=== PATIENT | male | born 1965 | race Caucasian/White ===

== ENCOUNTER → 2016-09-11 | Outpatient (CLI) | payer OTHER ==
[~2016-09-11] MED LIST: ADVICOR PO; ALLI60 MG; ASPIRIN 32325 MG/TAB PO; CALAN SR240 MG PO; CEPHALEXIN500 M1 PO; CETIRIZINE; CETIRIZINE PO; CHOLESTEROL MED; CHROMIUM PICO200 MCG PO; CO Q-1010 M1 PO; FLONASE NASAL S16 GM NS; GARLIC PO; GLUCOPHAGE XR500 M1 PO; GLUCOSAMINE PO; K-DUR 10 MEQ T10 MEQ PO; LASIX 20MG TABL20 MG PO; LIPITOR20 MG PO; LISINOPRIL20 MG PO; LOFIBRA134 MG PO; MVI; MVI PO; NIASPAN1000 MG PO; NORCO 325 MG-51 TAB PO; PAXIL 20MG20 MG PO; PAXIL CR25 MG PO; PAXIL PO; PEPCID 20MG TAB20 MG PO; PREDNISONE20 MG PO; TAMIFLU 75MG75 MG PO; VERAPAMIL; VERELAN240 MG PO; VITAMIN C500 MG PO; ZESTRIL; ZOCOR40 MG PO; ZYVOX 600MG600 MG PO
== END ==
LOC: COL.VAS 12:30
DX: I82.409 Acute embolism and thrombosis of unspecified deep veins of unspecified lower extremity (principal); M79.605 Pain in left leg

== ENCOUNTER 2016-09-12 10:31 | Inpatient (IN) | payer OTHER ==
[~2016-09-12] VITALS: Ht 190.5 cm; Wt 162.1 kg
[~2016-09-12 10:31] MED LIST changes: -ALLI60 MG; -ASPIRIN 32325 MG/TAB PO; -CEPHALEXIN500 M1 PO; -CO Q-1010 M1 PO; -GLUCOPHAGE XR500 M1 PO; -K-DUR 10 MEQ T10 MEQ PO; -LASIX 20MG TABL20 MG PO; -LIPITOR20 MG PO; -LOFIBRA134 MG PO; -NIASPAN1000 MG PO; -NORCO 325 MG-51 TAB PO; -PAXIL 20MG20 MG PO; -PREDNISONE20 MG PO; -TAMIFLU 75MG75 MG PO; -VERELAN240 MG PO; -ZYVOX 600MG600 MG PO
[2016-09-12 11:47] LABS: HEMATOCRIT 39.6 % (42.0-52.0); HEMOGLOBIN 14.1 g/dl (13.5-18.0); MEAN CELL VOLUME 90 fl (80.0-100.0); MEAN CORPUSCULAR HEMOGLOBIN 32 pg (27.0-31.0); MEAN CORPUSCULAR HGB CONC 36 g/dl (33.0-37.0); MEAN PLATELET VOLUME 9.4 fl (7.4-10.4); PLATELET COUNT 199 K/mm3 (130-400); RED BLOOD COUNT 4.42 M/mm3 (4.20-5.60); REDCELL DISTRIBUTION WIDTH-CV 12.9 % (11.5-14.5); WHITE BLOOD COUNT 14.4 K/mm3 (4.8-10.8)
[2016-09-12 12:02] LABS: ADD PATHOLOGY DIFF REVIEW NO
[2016-09-12 12:05] LABS: PH 6 (5-8); SQUAMOUS EPITHELIAL 0-2 /hpf; URINE APPEARANCE Clear; URINE BACTERIA None Seen /hpf; URINE BILIRUBIN Negative (NEGATIVE); URINE BLOOD Negative (NEGATIVE); URINE COLOR Yellow; URINE GLUCOSE Negative (NEGATIVE); URINE KETONE Negative (NEGATIVE); URINE RBC 0-2 /hpf; URINE UROBILINOGEN Negative (NEGATIVE); URINE WBC 0-2 /hpf
[2016-09-12 12:05] LABS: BAND 38 % (0-10); NEUTROPHILS 57 % (42.0-75.2); PLATELET ESTIMATE NORMAL (NORMAL); TOTAL CELLS COUNTED 100
[2016-09-12 12:06] LABS: ADJUSTED CALCIUM 9.1 mg/dL (8.4-10.2); BILIRUBIN,TOTAL 2.1 mg/dL (0.0-1.0); CALCIUM 9.1 mg/dL (8.4-10.2); CREATININE, serum 0.73 mg/dL (0.66-1.25); INFLUENZA B NEGATIVE; POTASSIUM 3.7 mmol/L (3.4-5.0); TOTAL PROTEIN 7.7 gm/dL (6.4-8.2)
[2016-09-12] MEDS ORDERED: ASPIRIN 32325 MG/TAB PO (12:21)
[2016-09-12] MEDS ORDERED: ALLI60 MG (12:25)
[2016-09-12] MEDS ORDERED: CO Q-1010 M1 PO (12:26)
[2016-09-12] MEDS ORDERED: VERELAN240 MG PO (12:27)
[2016-09-12] MEDS ORDERED: GLUCOPHAGE XR500 M1 PO (12:28)
[2016-09-12] MEDS ORDERED: LOFIBRA134 MG PO (12:29)
[2016-09-12] MEDS ORDERED: NIASPAN1000 MG PO (12:30)
[2016-09-12] MEDS ORDERED: LIPITOR20 MG PO (12:31)
[2016-09-12] MEDS ORDERED: PAXIL 20MG20 MG PO (12:36)
[2016-09-12] MEDS ORDERED: TAMIFLU 75MG75 MG PO (12:58)
[2016-09-12] MEDS ORDERED: CEPHALEXIN500 M1 PO (12:58)
[2016-09-12 13:10] LABS: C-REACTIVE PROTEIN 38.8 mg/dL (0.0-0.9)
[2016-09-12 13:36] VITALS: BP 134/72; PULSE 75; TEMP 99.9
[2016-09-12 15:53] VITALS: BP 139/79; PULSE 85; TEMP 102
[2016-09-12 18:12] VITALS: BP 131/80; PULSE 95; TEMP 103.1
[2016-09-12 21:00] VITALS: BP 125/79; PULSE 81; TEMP 98.5
[2016-09-12 22:11] VITALS: BP 131/77; PULSE 78; TEMP 98.3
[2016-09-13] VITALS (9 sets, daily range): BP systolic 123–139; BP diastolic 73–87; PULSE 71–91; TEMP 98.1–103.2
[2016-09-13 08:21] LABS: MEAN CELL VOLUME 90 fl (80.0-100.0); MEAN CORPUSCULAR HGB CONC 35 g/dl (33.0-37.0); MEAN PLATELET VOLUME 9.2 fl (7.4-10.4); PLATELET COUNT 167 K/mm3 (130-400); RED BLOOD COUNT 3.63 M/mm3 (4.20-5.60); REDCELL DISTRIBUTION WIDTH-CV 12.8 % (11.5-14.5); WHITE BLOOD COUNT 9.3 K/mm3 (4.8-10.8)
[2016-09-13 08:24] LABS: HEMATOCRIT 32.8 % (42.0-52.0); HEMOGLOBIN 11.6 g/dl (13.5-18.0); MEAN CORPUSCULAR HEMOGLOBIN 32 pg (27.0-31.0)
[2016-09-13 08:25] LABS: ADD PATHOLOGY DIFF REVIEW NO
[2016-09-13 09:24] LABS: BAND 33 % (0-10); DOHLE BODIES PRESENT; NEUTROPHILS 58 % (42.0-75.2); PLATELET ESTIMATE NORMAL (NORMAL); TOTAL CELLS COUNTED 100; TOXIC GRANULATION PRESENT
[2016-09-13 09:25] LABS: CALCIUM 8.2 mg/dL (8.4-10.2); CREATININE, serum 0.61 mg/dL (0.66-1.25); POTASSIUM 3.4 mmol/L (3.4-5.0)
[2016-09-13 10:10] LABS: C-REACTIVE PROTEIN 36.8 mg/dL (0.0-0.9)
[2016-09-14] VITALS (7 sets, daily range): BP systolic 131–139; BP diastolic 63–85; PULSE 71–87; TEMP 98–102.8
[2016-09-14 07:10] LABS: HEMOGLOBIN 12.1 g/dl (13.5-18.0); MEAN CELL VOLUME 91 fl (80.0-100.0); MEAN CORPUSCULAR HEMOGLOBIN 32 pg (27.0-31.0); MEAN CORPUSCULAR HGB CONC 35 g/dl (33.0-37.0); MEAN PLATELET VOLUME 9.4 fl (7.4-10.4); PLATELET COUNT 194 K/mm3 (130-400); RED BLOOD COUNT 3.79 M/mm3 (4.20-5.60); WHITE BLOOD COUNT 9.1 K/mm3 (4.8-10.8)
[2016-09-14 07:14] LABS: ADD PATHOLOGY DIFF REVIEW NO; HEMATOCRIT 34.5 % (42.0-52.0)
[2016-09-14 07:24] LABS: CALCIUM 8.3 mg/dL (8.4-10.2); CREATININE, serum 0.7 mg/dL (0.66-1.25); POTASSIUM 3.3 mmol/L (3.4-5.0)
[2016-09-14 07:55] LABS: BAND 17 % (0-10); NEUTROPHILS 62 % (42.0-75.2); PLATELET ESTIMATE NORMAL (NORMAL); TOTAL CELLS COUNTED 100
[2016-09-14 08:04] LABS: C-REACTIVE PROTEIN 32.6 mg/dL (0.0-0.9)
[2016-09-15] VITALS (8 sets, daily range): BP systolic 108–139; BP diastolic 63–87; PULSE 70–91; TEMP 97.6–101.2
[2016-09-15 08:23] LABS: MEAN CELL VOLUME 91 fl (80.0-100.0); MEAN CORPUSCULAR HGB CONC 35 g/dl (33.0-37.0); MEAN PLATELET VOLUME 9.2 fl (7.4-10.4); PLATELET COUNT 185 K/mm3 (130-400); RED BLOOD COUNT 3.36 M/mm3 (4.20-5.60); REDCELL DISTRIBUTION WIDTH-CV 13.2 % (11.5-14.5)
[2016-09-15 08:25] LABS: HEMATOCRIT 30.5 % (42.0-52.0); HEMOGLOBIN 10.7 g/dl (13.5-18.0); MEAN CORPUSCULAR HEMOGLOBIN 32 pg (27.0-31.0)
[2016-09-15 08:26] LABS: ADD PATHOLOGY DIFF REVIEW NO
[2016-09-15 08:40] LABS: BAND 16 % (0-10); EOSINOPHIL 1 % (0-4); NEUTROPHILS 63 % (42.0-75.2); PLATELET ESTIMATE NORMAL (NORMAL); TOTAL CELLS COUNTED 100
[2016-09-15 08:43] LABS: CREATININE, serum 0.63 mg/dL (0.66-1.25); POTASSIUM 3.5 mmol/L (3.4-5.0)
[2016-09-15 09:47] LABS: C-REACTIVE PROTEIN 22.9 mg/dL (0.0-0.9)
[2016-09-16 00:11] VITALS: BP 125/84; PULSE 75; TEMP 100.3
[2016-09-16 04:02] VITALS: BP 146/85; PULSE 75; TEMP 100.6
[2016-09-16 06:14] LABS: MEAN CELL VOLUME 89 fl (80.0-100.0); MEAN CORPUSCULAR HGB CONC 36 g/dl (33.0-37.0); MEAN PLATELET VOLUME 9.2 fl (7.4-10.4); PLATELET COUNT 233 K/mm3 (130-400); RED BLOOD COUNT 3.24 M/mm3 (4.20-5.60); REDCELL DISTRIBUTION WIDTH-CV 13.2 % (11.5-14.5); WHITE BLOOD COUNT 9.8 K/mm3 (4.8-10.8)
[2016-09-16 06:26] LABS: HEMATOCRIT 28.8 % (42.0-52.0); HEMOGLOBIN 10.3 g/dl (13.5-18.0); MEAN CORPUSCULAR HEMOGLOBIN 32 pg (27.0-31.0)
[2016-09-16 06:29] LABS: CALCIUM 8.1 mg/dL (8.4-10.2); CREATININE, serum 0.6 mg/dL (0.66-1.25); POTASSIUM 3.6 mmol/L (3.4-5.0)
[2016-09-16 06:42] LABS: BAND 11 % (0-10); EOSINOPHIL 3 % (0-4); METAMYELOCYTE 1 % (0-0); MYELOCYTE 4 % (0-0); NEUTROPHILS 53 % (42.0-75.2); PLATELET ESTIMATE NORMAL (NORMAL); TOTAL CELLS COUNTED 100
[2016-09-16 06:43] LABS: ADD PATHOLOGY DIFF REVIEW YES
[2016-09-16 08:05] VITALS: BP 140/91; PULSE 67; TEMP 98.1
[2016-09-16 12:02] VITALS: BP 141/89; PULSE 78; TEMP 98.6
[2016-09-16 15:59] VITALS: BP 121/75; PULSE 73; TEMP 98.5
[2016-09-16 20:28] VITALS: BP 131/81; PULSE 76; TEMP 99.3
[2016-09-17] VITALS (7 sets, daily range): BP systolic 130–143; BP diastolic 74–85; PULSE 64–74; TEMP 97.9–99.5
[2016-09-17 08:36] LABS: PATHOLOGY DIFF REVIEW OK +
[2016-09-18 03:53] VITALS: BP 134/84; PULSE 68; TEMP 98.1
[2016-09-18 08:00] VITALS: BP 132/68; PULSE 67; TEMP 98.4
[2016-09-18 08:17] LABS: MEAN CELL VOLUME 92 fl (80.0-100.0); MEAN CORPUSCULAR HGB CONC 35 g/dl (33.0-37.0); MEAN PLATELET VOLUME 9.3 fl (7.4-10.4); RED BLOOD COUNT 3.41 M/mm3 (4.20-5.60); REDCELL DISTRIBUTION WIDTH-CV 13.5 % (11.5-14.5)
[2016-09-18 08:20] LABS: HEMATOCRIT 31.3 % (42.0-52.0); HEMOGLOBIN 10.8 g/dl (13.5-18.0); MEAN CORPUSCULAR HEMOGLOBIN 32 pg (27.0-31.0); PLATELET COUNT 428 K/mm3 (130-400)
[2016-09-18 08:30] LABS: ADD PATHOLOGY DIFF REVIEW NO
[2016-09-18 10:14] LABS: BAND 30 % (0-10); EOSINOPHIL 5 % (0-4); METAMYELOCYTE 2 % (0-0); MYELOCYTE 3 % (0-0); NEUTROPHILS 33 % (42.0-75.2); TOTAL CELLS COUNTED 100
[2016-09-18 12:17] VITALS: BP 128/83; PULSE 68; TEMP 98.5
[2016-09-18 17:38] VITALS: BP 136/78; PULSE 64; TEMP 98.9
[2016-09-18 19:35] VITALS: BP 148/81; PULSE 65; TEMP 98.2
[2016-09-19 00:04] VITALS: BP 142/76; PULSE 61; TEMP 98
[2016-09-19 03:57] VITALS: BP 142/76; PULSE 93; TEMP 97.9
[2016-09-19 08:47] VITALS: BP 149/86; PULSE 69; TEMP 98.8
[2016-09-19 09:05] LABS: MEAN CELL VOLUME 94 fl (80.0-100.0); MEAN CORPUSCULAR HGB CONC 34 g/dl (33.0-37.0); MEAN PLATELET VOLUME 8.8 fl (7.4-10.4); RED BLOOD COUNT 3.24 M/mm3 (4.20-5.60); REDCELL DISTRIBUTION WIDTH-CV 13.4 % (11.5-14.5); WHITE BLOOD COUNT 11.7 K/mm3 (4.8-10.8)
[2016-09-19 09:19] LABS: HEMATOCRIT 30.3 % (42.0-52.0); HEMOGLOBIN 10.3 g/dl (13.5-18.0); MEAN CORPUSCULAR HEMOGLOBIN 32 pg (27.0-31.0); PLATELET COUNT 555 K/mm3 (130-400)
[2016-09-19 09:20] LABS: ADD PATHOLOGY DIFF REVIEW NO
[2016-09-19 09:38] LABS: CALCIUM 9.2 mg/dL (8.4-10.2); CREATININE, serum 0.63 mg/dL (0.66-1.25); POTASSIUM 4.3 mmol/L (3.4-5.0)
[2016-09-19 09:58] LABS: BAND 6 % (0-10); EOSINOPHIL 2 % (0-4); NEUTROPHILS 65 % (42.0-75.2); TOTAL CELLS COUNTED 100
[2016-09-19 09:59] LABS: PLATELET ESTIMATE INCREASED (NORMAL); TOXIC GRANULATION PRESENT
[2016-09-19 12:11] VITALS: BP 137/83; PULSE 66; TEMP 98.1
[2016-09-19 17:12] VITALS: BP 146/82; PULSE 63; TEMP 99.4
[2016-09-19 19:48] VITALS: BP 138/76; PULSE 72; TEMP 98.7
[2016-09-20 00:48] VITALS: BP 144/77; PULSE 67; TEMP 98.4
[2016-09-20 03:45] VITALS: BP 141/82; PULSE 64; TEMP 97.6
[2016-09-20 07:32] LABS: MEAN CELL VOLUME 93 fl (80.0-100.0); MEAN CORPUSCULAR HGB CONC 34 g/dl (33.0-37.0); MEAN PLATELET VOLUME 8.9 fl (7.4-10.4); PLATELET COUNT 552 K/mm3 (130-400); RED BLOOD COUNT 3.72 M/mm3 (4.20-5.60); REDCELL DISTRIBUTION WIDTH-CV 13.1 % (11.5-14.5); WHITE BLOOD COUNT 11.9 K/mm3 (4.8-10.8)
[2016-09-20 07:51] VITALS: BP 137/70; PULSE 71; TEMP 98.2
[2016-09-20 07:53] LABS: CALCIUM 9.6 mg/dL (8.4-10.2); CREATININE, serum 0.63 mg/dL (0.66-1.25); POTASSIUM 4.1 mmol/L (3.4-5.0)
[2016-09-20 08:40] LABS: HEMATOCRIT 34.4 % (42.0-52.0); HEMOGLOBIN 11.6 g/dl (13.5-18.0); MEAN CORPUSCULAR HEMOGLOBIN 31 pg (27.0-31.0)
[2016-09-20 08:41] LABS: ADD PATHOLOGY DIFF REVIEW NO
[2016-09-20 11:58] VITALS: BP 144/88; PULSE 77; TEMP 97.9
[2016-09-20 12:54] LABS: BAND 14 % (0-10); METAMYELOCYTE 3 % (0-0); MYELOCYTE 1 % (0-0); NEUTROPHILS 63 % (42.0-75.2); PLATELET ESTIMATE INCREASED (NORMAL); TOTAL CELLS COUNTED 100; TOXIC GRANULATION PRESENT
[2016-09-20 16:28] VITALS: BP 149/79; PULSE 75; TEMP 98.9
[2016-09-20 19:27] VITALS: BP 143/81; PULSE 71; TEMP 98.9
[2016-09-21 00:39] VITALS: BP 141/73; PULSE 66; TEMP 98.7
[2016-09-21 04:23] VITALS: BP 145/71; PULSE 58; TEMP 98.7
[2016-09-21 07:51] VITALS: BP 141/82; PULSE 78; TEMP 97.5
[2016-09-21 07:53] LABS: CALCIUM 9.6 mg/dL (8.4-10.2); CREATININE, serum 0.62 mg/dL (0.66-1.25); POTASSIUM 4.1 mmol/L (3.4-5.0)
[2016-09-21 08:20] LABS: MEAN CELL VOLUME 94 fl (80.0-100.0); MEAN CORPUSCULAR HGB CONC 33 g/dl (33.0-37.0); PLATELET COUNT 610 K/mm3 (130-400); RED BLOOD COUNT 3.82 M/mm3 (4.20-5.60); REDCELL DISTRIBUTION WIDTH-CV 13.2 % (11.5-14.5); WHITE BLOOD COUNT 12.3 K/mm3 (4.8-10.8)
[2016-09-21] MEDS ORDERED: NORCO 325 MG-51 TAB PO (08:34)
[2016-09-21 08:46] LABS: ADD PATHOLOGY DIFF REVIEW NO; HEMATOCRIT 35.8 % (42.0-52.0); HEMOGLOBIN 11.9 g/dl (13.5-18.0); MEAN CORPUSCULAR HEMOGLOBIN 31 pg (27.0-31.0)
[2016-09-21] MEDS ORDERED: ZYVOX 600MG600 MG PO (09:24)
[2016-09-21] MEDS ORDERED: LASIX 20MG TABL20 MG PO (09:25)
[2016-09-21] MEDS ORDERED: PREDNISONE20 MG PO (09:26)
[2016-09-21] MEDS ORDERED: K-DUR 10 MEQ T10 MEQ PO (09:27)
[2016-09-21 11:25] VITALS: BP 119/74; PULSE 54; TEMP 98.5
[2016-09-21 15:42] LABS: BAND 7 % (0-10); METAMYELOCYTE 1 % (0-0); MYELOCYTE 1 % (0-0); NEUTROPHILS 66 % (42.0-75.2); PLATELET ESTIMATE INCREASED (NORMAL); TOTAL CELLS COUNTED 100
[2016-09-21 15:43] LABS: TOXIC GRANULATION PRESENT
== END 2016-09-21 17:15 | disposition home or self-care (01) | DRG 872 ==
LOC: COL.ER 10:31 → MEDICAL 12:38 → SURG 09-18 11:20 → MEDICAL 09-18 11:20
PROVIDERS: Emergency Medicine; Family Medicine; Internal Medicine; Physician Assistant
PROC: 02HV33Z Insertion of Infusion Device into Superior Vena Cava, Percutaneous Approach (ICD-10-PCS; principal; 2016-09-14)
DX: A41.9 Sepsis, unspecified organism (principal); L03.116 Cellulitis of left lower limb; E87.1 Hypo-osmolality and hyponatremia; I10 Essential (primary) hypertension; E11.9 Type 2 diabetes mellitus without complications; E78.5 Hyperlipidemia, unspecified; E86.0 Dehydration; G47.33 Obstructive sleep apnea (adult) (pediatric); F41.9 Anxiety disorder, unspecified; F10.10 Alcohol abuse, uncomplicated; Z87.891 Personal history of nicotine dependence
CPT/HCPCS: 99222-AI; 99232-AI; 99239; C1751; J1644; J1650; J1815; J1940; J2020; J2060; J2270; J2543; J2997; J3370; J3480; J7030; J7040; J7050; J7512; Q9967

== ENCOUNTER 2016-09-28 11:01 | Outpatient (CLI) | payer OTHER ==
[2016-09-28 11:20] VITALS: BP 130/70; PULSE 70; TEMP 98.6
== END 2016-09-28 11:23 | disposition home or self-care (01) ==
LOC: EUO 11:01
DX: Z45.2 Encounter for adjustment and management of vascular access device (principal); L03.818 Cellulitis of other sites

== ENCOUNTER → 2016-09-28 | Outpatient (CLI) | payer OTHER ==
[~2016-09-28] MED LIST changes: +ALLI60 MG; +ASPIRIN 32325 MG/TAB PO; +CEPHALEXIN500 M1 PO; +CO Q-1010 M1 PO; +GLUCOPHAGE XR500 M1 PO; +K-DUR 10 MEQ T10 MEQ PO; +LASIX 20MG TABL20 MG PO; +LIPITOR20 MG PO; +LOFIBRA134 MG PO; +NIASPAN1000 MG PO; +NORCO 325 MG-51 TAB PO; +PAXIL 20MG20 MG PO; +PREDNISONE20 MG PO; +TAMIFLU 75MG75 MG PO; +VERELAN240 MG PO; +ZYVOX 600MG600 MG PO
== END ==
LOC: WCC 09:34
DX: L03.115 Cellulitis of right lower limb (principal); E66.01 Morbid (severe) obesity due to excess calories
CPT/HCPCS: 13919; 13973; A6199; G0463

== ENCOUNTER → 2016-10-04 | Outpatient (CLI) | payer OTHER | LOC: WCC 10:00 → EDSTATUS 10:44 | DX: L03.115 Cellulitis of right lower limb (principal) | CPT/HCPCS: 13919; 13973; A6199; G0463 ==

== ENCOUNTER → 2016-10-12 | Outpatient (CLI) | payer OTHER | LOC: WCC 10-04 15:04 | DX: L03.115 Cellulitis of right lower limb (principal); E66.01 Morbid (severe) obesity due to excess calories | CPT/HCPCS: 17717; A6212; G0463 ==

== ENCOUNTER 2016-10-17 09:24 | Outpatient (RCR) | payer OTHER | END 2016-11-30 10:47 | disposition home or self-care (01) | LOC: WSPT 09:24 | DX: L03.115 Cellulitis of right lower limb (principal); E66.01 Morbid (severe) obesity due to excess calories ==

== ENCOUNTER → 2016-10-19 | Outpatient (CLI) | payer OTHER | LOC: WCC 10:09 | DX: I87.8 Other specified disorders of veins (principal); L97.919 Non-pressure chronic ulcer of unspecified part of right lower leg with unspecified severity; L03.115 Cellulitis of right lower limb; E66.01 Morbid (severe) obesity due to excess calories | CPT/HCPCS: G0463 ==

== ENCOUNTER 2017-02-20 13:14 | Outpatient (RCR) | payer OTHER | END 2017-03-14 13:46 | disposition home or self-care (01) | LOC: WSPT 13:14 | DX: R60.0 Localized edema (principal) ==

== ENCOUNTER → 2019-08-28 | Outpatient (CLI) | payer OTHER | LOC: COL.VAS 10:03 | DX: M79.89 Other specified soft tissue disorders (principal); R79.1 Abnormal coagulation profile ==

== ENCOUNTER → 2020-07-22 | Outpatient (CLI) | payer OTHER | LOC: COL.RAD 13:31 | DX: R10.12 Left upper quadrant pain (principal) | CPT/HCPCS: Q9967 ==